=== PATIENT | male | born 1985 | race American Indian/Alaskan Native ===

== ENCOUNTER 2017-01-03 20:19 | Emergency (ER) | payer SELFPAY ==
--- NOTE | 2017-01-03 21:31 | Emergency Department Report ---
ED ENT HPI - General Chief complaint: Sore Throat Stated complaint: COLD SX Source: patient Mode of arrival: Ambulatory Limitations: No Limitations - History of Present Illness Initial comments: 31 y/o M with a PMHx of pharyngitis presents with a sore throat, nasal congestion, fever, chills, and a productive cough for the past 2-3 days. Pt states that he has been around his neice and sister who both have sinus infections. Pt has not tried anything for the symptoms at this time. Pt states that he has a hx of recurrent strep infections. Pt states that he has been told numerous times to have his tonsills removed due to recurrent infections. Pt also admits to some nausea, vomiting, and a lack of appetite. Pt denies any resp distress, SOB, neck stiffness, wheezing, or chest tightness. Pt states that he has a hx of frequent sinus infections. He states that the symptoms feel similar to his common pharyngitis and sinus infections. NKDA. RODRIGUEZ complaint: sore throat, difficulty swallowing -: days(s) (3) Location: throat Severity: moderate Severity scale (0 -10): 5 Consistency: constant Improves with: none Worsens with: none Associated Symptoms: fever, cough, pain with swallowing, sore throat - Related Data Previous Rx's Medication Instructions Recorded Last Taken Type Amoxicillin/Potassium Clav 1 each PO BID #20 tablet 01/03/17 Unknown Rx [Augmentin 875-125 Tablet] predniSONE [Deltasone] 20 mg PO QDAY #5 tab 01/03/17 Unknown Rx Allergies Allergy/AdvReac Type Severity Reaction Status Date / Time No Known Allergies Allergy Unverified 01/03/17 20:34 ED Dental HPI - General Chief complaint: Sore Throat Stated complaint: COLD SX Source: patient Mode of arrival: Ambulatory Limitations: No Limitations - History of Present Illness MD complaint: sore throat, difficulty swallowing - Related Data Previous Rx's Medication Instructions Recorded Last Taken Type Amoxicillin/Potassium Clav 1 each PO BID #20 tablet 01/03/17 Unknown Rx [Augmentin 875-125 Tablet] predniSONE [Deltasone] 20 mg PO QDAY #5 tab 01/03/17 Unknown Rx Allergies Allergy/AdvReac Type Severity Reaction Status Date / Time No Known Allergies Allergy Unverified 01/03/17 20:34 ED Review of Systems ROS: Stated complaint: COLD SX Other details as noted in HPI Constitutional: chills, fever Eyes: denies: eye pain, eye discharge, vision change ENT: throat pain, congestion Respiratory: cough. denies: shortness of breath, wheezing Cardiovascular: denies: chest pain, palpitations Endocrine: no symptoms reported Gastrointestinal: nausea, vomiting. denies: abdominal pain, diarrhea Musculoskeletal: denies: back pain, joint swelling, arthralgia Skin: denies: rash, lesions Neurological: denies: headache, weakness, paresthesias Psychiatric: denies: anxiety, depression Hematological/Lymphatic: denies: easy bleeding, easy bruising ED Past Medical Hx - Past Medical History Previous Medical History?: No - Surgical History Past Surgical History?: No - Social History Smoking Status: Never Smoker Substance Use Type: Alcohol - Medications Home Medications: Home Medications Medication Instructions Recorded Confirmed Last Taken Type Amoxicillin/Potassium Clav 1 each PO BID #20 tablet 01/03/17 Unknown Rx [Augmentin 875-125 Tablet] predniSONE [Deltasone] 20 mg PO QDAY #5 tab 01/03/17 Unknown Rx ED Physical Exam - General Limitations: No Limitations General appearance: alert, in no apparent distress - Head Head exam: Present: atraumatic, normocephalic, normal inspection, other ( frontal sinus TTP) - Eye Eye exam: Present: normal appearance, EOMI Pupils: Present: normal accommodation - ENT ENT exam: Present: normal orophraynx (mild clear nasal congestion noted on exam) , other (tonsils are enlarged bilaterally, there is pus pockets noted on the R tonsil, no deviation of the uvula or muffled/hot potato voice, no evidence of peritonsillar abscess- pt speaking in full sentences in no resp distress) - Neck Neck exam: Present: normal inspection, full ROM. Absent: tenderness, lymphadenopathy - Respiratory Respiratory exam: Present: normal lung sounds bilaterally. Absent: respiratory distress - Cardiovascular Cardiovascular Exam: Present: regular rate, normal rhythm. Absent: systolic murmur, diastolic murmur, rubs, gallop - GI/Abdominal GI/Abdominal exam: Present: soft, normal bowel sounds - Extremities Exam Extremities exam: Present: normal inspection - Back Exam Back exam: Present: normal inspection - Neurological Exam Neurological exam: Present: alert, oriented X3, normal gait - Psychiatric Psychiatric exam: Present: normal affect, normal mood - Skin Skin exam: Present: warm, dry, intact, normal color. Absent: rash ED Course Vital Signs 01/03/17 01/03/17 20:34 22:19 Temperature 99.2 F 98.3 F Pulse Rate 66 89 Respiratory 18 18 Rate Blood Pressure 149/65 Blood Pressure 140/82 [Left] O2 Sat by Pulse 96 98 Oximetry ED Medical Decision Making - Medical Decision Making A rapid strep was obtained on the patient and the patient was positive for strep. pt was treated with solu-medrol 125 mg here in the ED. He was discharged home with Augmentin and prednisone. Pt was recommended to take tylenol as needed for the pain. Pt denied any further imaging at this time. Pt was alert and oriented at discharge and in no acute resp distress. He was speaking in full sentences to me upon discharge. Referrals were provided to the patient for PCP and ENT referrals. Critical care attestation.: If time is entered above; I have spent that time in minutes in the direct care of this critically ill patient, excluding procedure time. ED Disposition Clinical Impression: Pharyngitis Qualifiers: Pharyngitis/tonsillitis etiology: streptococcus Qualified Code(s): J02.0 - Streptococcal pharyngitis Disposition: DC-01 TO HOME OR SELFCARE Is pt being admited?: No Does the pt Need Aspirin: No Condition: Stable Instructions: Prednisone (By mouth), Amoxicillin/Clavulanate Potassium (By mouth), Strep Throat (ED) Additional Instructions: Please complete your full course of antibiotic. Please take the prednisone once a day for the next 5 days. Please avoid Motorin or Ibuprofen with the prednisone. You may take over the counter tylenol as needed for the pain. A referral to ENT has been provided to you today please follow-up with them within the week. PCP follow-up within 3-5 days to ensure clearance. Please return to the ER immediately if your presenting symptoms progress or acutely worsen. Prescriptions: Amoxicillin/Potassium Clav [Augmentin 875-125 Tablet] 1 each PO BID #20 tablet predniSONE [Deltasone] 20 mg PO QDAY #5 tab Referrals: RAKEL KING MD [Staff Physician] - 3-5 Days [facility] [Outside] - 3-5 Days [facility] [Outside] - 3-5 Days Forms: Work/School Release Form(ED)
[2017-01-03 22:19] VITALS: BP 140/82
== END 2017-01-03 22:22 | disposition home or self-care (01) ==
LOC: ED 20:19
DX: J02.0 Streptococcal pharyngitis (principal)
CPT/HCPCS: 87430; 96372; 99282; J2930